=== PATIENT | female | born 1990 | race American Indian/Alaskan Native ===

== ENCOUNTER 2017-02-17 07:55 | Inpatient (IN) | payer OTHER ==
[2017-02-17] MEDS ORDERED: DEXTROSE 5%-LACTATED RINGERS 1,000 ML IV ONE (08:20)
[2017-02-17 14:16] VITALS: BMI 24.3
[2017-02-17 14:17] LABS: MCHC 34.4 g/dl (32.0-36.0); MEAN CELL VOLUME 90.2 fl (80-96); MEAN PLT VOLUME 10.1 fl (7.5-11.1); NEUTROPHILS 84.1 % (42.8-82.8); PLATELET COUNT 148 K/MM3 (134-434); RDW 14.3 % (11.6-15.6); WHITE BLOOD COUNT 8.5 K/mm3 (4.0-10.0)
[2017-02-17 14:42] LABS: INR 0.95 (0.82-1.09); PROTHROMBIN TIME (PATIENT) 10.7 SEC (9.98-11.88)
[2017-02-17 14:44] LABS: ACTIVATED PTT 29.9 SECONDS (26.9-34.4)
[2017-02-17 14:52] LABS: ANION GAP 14 (8-16); CALCIUM 8.3 mg/dL (8.5-10.1); CO2 21 mmol/L (21-32); CREATININE 0.5 mg/dL (0.55-1.02); GLUCOSE,RANDOM 72 mg/dL (74-106)
[2017-02-17 15:00] LABS: HIV 1 & 2 AB NEGATIVE; HIV 1 AGp24 NEGATIVE
[2017-02-17] MEDS ORDERED: PROMETHAZINE HCL 25 MG/1 ML VIAL IVPUSH ONE (16:15)
[2017-02-17] MEDS ORDERED: BUTORPHANOL TARTRATE 1 MG/ML VIAL IVPUSH ONE (16:15)
--- NOTE | 2017-02-17 19:40 | HP ---
Past Medical History - Primary Care Physician PCP:: Jorge Nathan - Admission Chief Complaint: 38 weeks, rom, labor History of Present Illness: 26 yo f EDC 02/28 c/o leaking af since this am, clear fluid , no fever, has pain since 7 am , cx 2 cm 70 vx -2 mr ,nitrazine positive, clear fluid, fhr cat 1, contraction, moderate intensity History Source: Caregiver Limitations to Obtaining History: No Limitations - Past Medical History ...: 1 ...Para: 0 ...Term: 0 ...: 0 ...Spon : 0 ...Induced : 0 ...Multiple Gestation: 0 ...LMP: 05/24/16 ... Weeks Gestation by Dates: 38.3 ...EDC by Dates: 02/28/17 ...EDC by Sono: 03/03/17 - Past Surgical History Hx Myomectomy: No Hx Transabdominal Cerclage: No - Smoking History Smoking history: Never smoked Have you smoked in the past 12 months: No - Alcohol/Substance Use Hx Alcohol Use: No History of Substance Use: reports: None - Social History Usual Living Arrangement: Yes: With Spouse History of Recent Travel: No Home Medications - Allergies Allergies/Adverse Reactions: Allergies Allergy/AdvReac Type Severity Reaction Status Date / Time No Known Allergies Allergy Verified 06/30/15 11:08 - Home Medications Home Medications: Ambulatory Orders Vitamins (Sjr) - 1 tab PO DAILY 02/15/17 Review of Systems - Review of Systems Constitutional: reports: No Symptoms Eyes: reports: No Symptoms HENT: reports: No Symptoms Neck: reports: No Symptoms Cardiovascular: reports: No Symptoms Respiratory: reports: No Symptoms Gastrointestinal: reports: Abdominal Pain Genitourinary: reports: No Symptoms Breasts: reports: No Symptoms Reported Musculoskeletal: reports: No Symptoms Integumentary: reports: No Symptoms Neurological: reports: No Symptoms Endocrine: reports: No Symptoms Hematology/Lymphatic: reports: No Symptoms Psychiatric: reports: No Symptoms Physical Exam - Maternity Vital Signs: Vital Signs Temperature 98.7 F 02/17/17 17:56 Pulse Rate 86 02/17/17 19:00 Respiratory Rate 20 02/17/17 19:00 Blood Pressure 137/88 02/17/17 19:00 O2 Sat by Pulse Oximetry (%) Constitutional: Yes: Well Nourished, No Distress, Calm Eyes: Yes: WNL, Conjunctiva Clear, EOM Intact HENT: Yes: WNL, Atraumatic, Normocephalic Neck: Yes: WNL, Supple, Trachea Midline Cardiovascular: Yes: WNL, Regular Rate and Rhythm Breast(s): Yes: WNL - Abdominal Exam/OB Fundal Height: 40 Number of Fetuses: Single Presentation: Vertex Contractions: Yes Regularity: Irregular Intensity: Mod/Strong Monitor Mode: External Heart Rate Location: [facility] Category: I Accelerations: Uniform Decelerations: None - Physical Exam Musculoskeletal: Yes: WNL Extremities: Yes: WNL Edema: Yes Edema: LLE: Trace, RLE: Trace Deep Tendon Reflex Grade: Normal +2 ...Motor Strength: WNL Psychiatric: Yes: WNL - Labs Lab Results: CBC, BMP 02/17/17 13:00 02/17/17 13:00 Hemorrhage Risk Assessment - Risk Factors Medium Risk Factors: Yes: None High Risk Factors: Yes: None Risk Score: 1 Risk Level: Medium Risk Problem List - Problems (1) with 38 completed weeks gestation Code(s): Z3A.38 - 38 WEEKS GESTATION OF (2) membrane rupture Code(s): EEG4457 - (3) Labor established Code(s): IQQ2570 - Assessment/Plan admit, fhm, pain management
[2017-02-17] MEDS ORDERED: ELECTROLYTE-148 SOLN 1,000 ML IV SCH (19:45)
[2017-02-17] MEDS ORDERED: FENTANYL/BUPIVACAINE/NS/PF - PCEA - 50 ML DISP.SYRIN EP SCH (20:15)
[2017-02-18] MEDS ORDERED: AMPICILLIN - 2 GM in SODIUM CHLORIDE 100 ML IVPB ONE (01:00)
--- NOTE | 2017-02-18 01:38 | PN ---
Progress Note (short form) - Note Progress Note: cx full, 100 vx 2 pluse , multiple variable decel noted with pushing . advised c /s, rba discussed Problem List - Problems (1) with 38 completed weeks gestation Code(s): Z3A.38 - 38 WEEKS GESTATION OF (2) membrane rupture Code(s): QZU5751 - (3) Labor established Code(s): ABY4225 -
[2017-02-18] MEDS ORDERED: BUPIVACAINE HCL/PF 0.5% (5MG/ML) 10 ML VIAL ONE (01:39)
[2017-02-18 02:40] LABS: ARTERIAL BLOOD GAS BASE EXCESS -11.3 meq/l (-2-2); ARTERIAL BLOOD GAS HCO3 20.1 meq/L (22-26)
[2017-02-18] MEDS ORDERED: IBUPROFEN 800 MG/8 ML IJ IVPB PRN (02:53)
[2017-02-18] MEDS ORDERED: WITCH HAZEL 50% (TUCKS) 40 PAD/JAR PAD TP PRN (02:53)
[2017-02-18] MEDS ORDERED: BENZOCAINE 20% 57 GM BOTTLE TP PRN (02:53)
[2017-02-18] MEDS ORDERED: BENZOCAINE 28 GM HEMORRHOIDAL OINTMENT PR PRN (02:53)
[2017-02-18] MEDS ORDERED: METHYLERGONOVINE MALEATE 0.2 MG/1 ML AMP IM PRN (02:53)
[2017-02-18] MEDS ORDERED: diphenhydrAMINE HCL 25 MG CAPSULE (FP) PO PRN (02:53)
[2017-02-18] MEDS ORDERED: oxyCODONE HCL 5 MG TABLET PO PRN (02:53)
[2017-02-18 02:56] LABS: ARTERIAL BLD GAS O2 SATURATION 17.4 % (90-98.9); ARTERIAL BLOOD GAS PO2 13.2 mmHg (80-100)
[2017-02-18 03:00] LABS: VENOUS BLOOD GAS HCO3 19.2 meq/L (19-25); VENOUS PH 7.13 (7.32-7.42)
[2017-02-18] MEDS ORDERED: DEXTROSE 5%-LACTATED RINGERS 1,000 ML IV SCH (03:00)
[2017-02-18] MEDS ORDERED: OXYTOCIN 20 UNITS in 0.9% NS 20 UNIT/1,000 ML INFUS.BAG IV SCH (03:00)
[2017-02-18] MEDS ORDERED: morphine SULFATE/Preservative Free 0.5 MG/ML (1cc Syringe) SPIN ONE (03:13)
[2017-02-18] MEDS ORDERED: ONDANSETRON 4 MG/2 ML VIAL IVPUSH PRN (03:13)
[2017-02-18] MEDS ORDERED: ACETAMINOPHEN 1000 MG/100 ML VIAL (NON FORMULARY) IVPB ONE (03:14)
[2017-02-18] MEDS: CEFAZOLIN 1 GM/D5W 1 GM/50 ML BAG IVPB SCH ×2 (09:21→17:58)
--- NOTE | 2017-02-18 09:33 | OP ---
DATE OF OPERATION: 02/18/2017 PREOPERATIVE DIAGNOSIS: at 38 weeks, labor, failure of descent in second stage of labor, and nonreassuring heart rate. POSTOPERATIVE DIAGNOSIS: at 38 weeks, labor, failure of descent in second stage of labor, and nonreassuring heart rate. PROCEDURE: Primary low segment transverse section. SURGEON: Justo Nathan MD [facility] CENTER PROJECT MANAGER: DEXTER Huang ANESTHESIA: Spinal anesthesia by Ti Manuel MD. ESTIMATED BLOOD LOSS: 700 mL. DESCRIPTION OF PROCEDURE: The patient was taken to the operating room, had adequate spinal anesthesia. Abdomen and perineum were prepped and draped. Pfannenstiel abdominal skin incision was made. Abdomen wall was cut layer by layer. Anterior peritoneum was exposed and incised. Upon entering the abdominal cavity, lower uterine segment was identified and ureterovesical fold of peritoneum was established. Bladder was pushed down. Then with the lower blade of the [place] retractor in the pelvis, a low transverse uterine incision was made, incision extended laterally. Amniotic sac was entered, clear fluid. Head delivered from occiput posterior position. Nasopharynx was suctioned and live baby was delivered, attended by pump attendant. 8 and 9. Placenta was delivered manually. Uterine cavity was cleaned of all remaining tissue. Uterine incision was closed in 2 layers, first layer with 0 Biosyn continuous suture, the second layer with 0 Biosyn imbricating the first layer. Bladder flap was closed with 0 Biosyn continuous suture. Both tubes and ovaries were checked and normal. No active bleeding was seen. All the lap pad, sponge, needle, and instrument counts were correct. Then the peritoneum was closed with 0 Biosyn continuous suture. Muscles were brought together with interrupted sutures of 0 Biosyn. Fascia was closed with 0 Biosyn continuous suture, subcutaneous fat with interrupted suture of 0 Biosyn, and skin was closed with raulito. The patient tolerated the procedure well, left the OR in good condition JUSTO NATHAN M.D. [id number]
[2017-02-18] MEDS: SIMETHICONE 80 MG TAB.CHEW (FP) PO PRN (20:52)
[2017-02-18] MEDS: ACETAMINOPHEN 325 MG TABLET (FP) PO PRN (20:52)
[2017-02-18] MEDS: IBUPROFEN 600 MG TABLET (FP) PO PRN (20:58)
[2017-02-19] MEDS ORDERED: BISACODYL 10 MG SUPP.RECT PR PRN (02:53)
[2017-02-19] MEDS ORDERED: TUBERCULIN PPD 5 TU/0.1ML SYRINGE (IN PATIENT USE ONLY) ID ONE (07:00)
[2017-02-19 07:46] LABS: BASOPHIL 0.4 % (0-2.0); EOSINOPHIL 0.6 % (0-4.5); MCHC 34.3 g/dl (32.0-36.0); MEAN CELL VOLUME 90.5 fl (80-96); MEAN PLT VOLUME 9.5 fl (7.5-11.1); NEUTROPHILS 84.9 % (42.8-82.8); PLATELET COUNT 147 K/MM3 (134-434); RDW 14.7 % (11.6-15.6); WHITE BLOOD COUNT 12.6 K/mm3 (4.0-10.0)
[2017-02-19] MEDS: ACETAMINOPHEN 325 MG TABLET (FP) PO PRN ×2 (09:33→20:03)
[2017-02-19] MEDS: IBUPROFEN 600 MG TABLET (FP) PO PRN ×2 (09:34→20:02)
[2017-02-19] MEDS: SIMETHICONE 80 MG TAB.CHEW (FP) PO PRN ×2 (09:35→20:02)
--- NOTE | 2017-02-19 11:11 | PN ---
Post Progress Note - Subjective Subjective: No complaints Post Day: 1 Type of Delivery: Primary C/S Vital Signs: Vital Signs Temperature 98.5 F 02/19/17 08:54 Pulse Rate 97 H 02/19/17 08:54 Respiratory Rate 20 02/19/17 08:54 Blood Pressure 116/60 02/19/17 08:54 O2 Sat by Pulse Oximetry (%) 98 02/18/17 06:00 Breast Exam: Yes: Soft Uterus: Yes: Fundus Firm, Fundus below umbilicus, Non-tender Incision: Yes: Dressing dry and intact Abdomen/GI: Yes: Abdomen soft Lochia: Yes: Rubra Lochia, amount: Small Extremities: Yes: Calves non-tender Perineum: Yes: Intact Activity: Ambulating - Labs Labs: CBC WBC 12.6 K/mm3 (4.0-10.0) H D 02/19/17 07:06 RBC 2.99 M/mm3 (3.60-5.2) L D 02/19/17 07:06 Hgb 9.3 GM/dL (10.7-15.3) L D 02/19/17 07:06 Hct 27.1 % (32.4-45.2) L D 02/19/17 07:06 MCV 90.5 fl (80-96) 02/19/17 07:06 MCH 31.0 pg (25.7-33.7) 02/19/17 07:06 MCHC 34.3 g/dl (32.0-36.0) 02/19/17 07:06 RDW 14.7 % (11.6-15.6) 02/19/17 07:06 Plt Count 147 K/MM3 (134-434) 02/19/17 07:06 MPV 9.5 fl (7.5-11.1) 02/19/17 07:06 Neutrophils % 84.9 % (42.8-82.8) H 02/19/17 07:06 Lymphocytes % 9.5 % (8-40) 02/19/17 07:06 Monocytes % 4.6 % (3.8-10.2) 02/19/17 07:06 Eosinophils % 0.6 % (0-4.5) D 02/19/17 07:06 Basophils % 0.4 % (0-2.0) 02/19/17 07:06 Assessment/Plan 30yo POD#1 s/p primary LT C/S, doing well stable, afebrile. care instructions reviewed. Asymtomatic for anemia Continue routine postop care. Ambulation encouraged
--- NOTE | 2017-02-19 18:41 | PN ---
Progress Note (short form) - Note Progress Note: Anesthesia post op note, POD#1. S/P in Epidural. VSS. Ambulating. No apparent post anesthesia complications. Signed off.
[2017-02-20] MEDS: SIMETHICONE 80 MG TAB.CHEW (FP) PO PRN ×3 (08:11→21:28)
[2017-02-20] MEDS: ACETAMINOPHEN 325 MG TABLET (FP) PO PRN ×3 (08:11→21:27)
[2017-02-20] MEDS: oxyCODONE HCL 5 MG TABLET PO PRN ×2 (08:12→15:47)
[2017-02-20] MEDS ORDERED: FLU VACC QS2017-18 36MOS UP/PF 60 MCG/0.5 ML SYRINGE IM ONE (10:00)
[2017-02-20] MEDS ORDERED: DIPHTH,PERTUSS(ACELL),TET 0.5 ML DISP.SYRIN IM ONE (10:00)
[2017-02-20] MEDS ORDERED: SENNOSIDES/DOCUSATE COMBO (SENNA PLUS) TABLET (UD) PO PRN (22:00)
[2017-02-21 07:56] LABS: BASOPHIL 0.4 % (0-2.0); MCH 30.8 pg (25.7-33.7); MCHC 34.1 g/dl (32.0-36.0); MEAN CELL VOLUME 90.1 fl (80-96); MEAN PLT VOLUME 8.6 fl (7.5-11.1); NEUTROPHILS 82.6 % (42.8-82.8); PLATELET COUNT 191 K/MM3 (134-434); RDW 14.8 % (11.6-15.6)
[2017-02-21] MEDS: IBUPROFEN 600 MG TABLET (FP) PO PRN ×2 (08:07→20:26)
[2017-02-21] MEDS: SIMETHICONE 80 MG TAB.CHEW (FP) PO PRN ×2 (08:08→20:23)
[2017-02-21] MEDS: ACETAMINOPHEN 325 MG TABLET (FP) PO PRN ×2 (08:08→20:23)
--- NOTE | 2017-02-21 09:51 | DS ---
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 Vital Signs: Vital Signs Temperature 98.1 F 02/20/17 22:00 Pulse Rate 104 H 02/20/17 22:00 Respiratory Rate 20 02/20/17 22:00 Blood Pressure 136/84 02/20/17 22:00 O2 Sat by Pulse Oximetry (%) 98 02/18/17 06:00 Constitutional: Yes: Well Nourished, No Distress, Calm Eyes: Yes: WNL, Conjunctiva Clear, EOM Intact HENT: Yes: WNL, Atraumatic, Normocephalic Neck: Yes: WNL, Supple, Trachea Midline Cardiovascular: Yes: WNL, Regular Rate and Rhythm Respiratory: Yes: WNL, Regular, CTA Bilaterally Gastrointestinal: Yes: WNL, Normal Bowel Sounds, Soft ...Rectal Exam: Yes: Deferred Renal/: Yes: WNL External Genitalia: Yes: Normal Internal Exam Deferred: Yes ....Post : Yes: Uterus firm, Uterus non-tender, Slight lochia rubra Breast(s): Yes: WNL Musculoskeletal: Yes: WNL Extremities: Yes: WNL Edema: LLE: 1+, RLE: 1+ Integumentary: Yes: WNL Wound/Incision: Yes: Clean/Dry, Well Approximated, Darleen Intact Neurological: Yes: WNL, Alert, Oriented ...Motor Strength: WNL Psychiatric: Yes: WNL, Alert, Oriented Labs: CBC, BMP 02/21/17 07:00 02/17/17 13:00 Delivery - Delivery Section: Primary, Low Flap Transverse Type of Anesthesia: Spinal Episiotomy/Laceration: None EBL (cc): 700 Delivery, Single - Stages of Labor Date 1st Stage Initiatied: 02/17/17 Time 1st Stage Initiated: 08:00 Date 2nd Stage Initiated: 02/17/17 Time 2nd Stage Initiated: 23:50 Date of Delivery: 02/18/17 Time of Delivery: 02:13 Time Placenta Delivered: 02:14 Placenta: Yes: Manual Removal - Condition of Infant Staff Pharmacist/Perfect Binder Operator Present: Yes Name: Dannie Hammonds Gender: Female Weight: 2.665 kg Position: OP Total Hours ROM (Hrs/Mins): 14h43m - 1 Minute Total Score: 8 5 Minutes Total Score: 9 - Feeding Plan Initial Plan: Elected not to breastfeed exclusively throughout hospitalization Discharge Summary Current Active Problems membrane rupture (Acute) Labor established (Acute) with 38 completed weeks gestation (Acute) Procedures: Principal: Primary LT C/S Hospital Course: Normal recovery Condition: Good - Instructions Diet, Activity, Other Instructions: Physical activity Resume your normal everyday activity as tolerated no heavy lifting or exercise until seen by your surgeon. You may walk unlimited marcie of and climb stairs. You may resume driving the car when you feel safe and comfortable behind the wheel. No sexual activity as instructed. Wound care If you have a bandage, leave it on, and keep dry for 48-72 hours. After that time discard the outer bandage. If they are tapes on the skin under the out of bandage leave them in place. They will peel off in the next 7 to 10 days. Do Not Peel them off. You may shower the day after surgery. If there are tapes present on the skin, you may shower over them. Diet There are no dietary restrictions. Eat healthy, high-fiber foods. Drink 6 to 8 glasses of liquid each day. This will assist in keeping your bowels are regular. Pain management You may take Tylenol or acetaminophen or Ibuprofen (for example, Motrin, Advil etc.) from my pain prescription medication is ordered should be taken as prescribed for moderate to severe pain. Call MD for any of the following: Severe pain not relieved by medication Fever of 101 or higher Excessive bleeding or drainage on dressing Inability to urinate Referrals: Jorge Nathan MD [Staff Physician] - Disposition: HOME - Home Medications Comprehensive Discharge Medication List: Ambulatory Orders Vitamins (Sjr) - 1 tab PO DAILY 02/15/17
[2017-02-22 08:30] VITALS: BP 125/85; PULSE 76; TEMP 97.8
[2017-02-22] MEDS: IBUPROFEN 600 MG TABLET (FP) PO PRN (10:23)
[2017-02-22] MEDS: ACETAMINOPHEN 325 MG TABLET (FP) PO PRN (10:24)
--- NOTE | 2017-02-23 17:12 | PATH ---
Surgical Pathology Report Patient Name: MILLIE EASLEY Med. Rec. #: [id number] /Age/Gender: 1990 (Age: 26) / F Account: [id number] Location: [facility] OBS/PERSONAL CHEF Taken: 02/18/2017 Received: 02/18/2017 Reported: 02/23/2017 Physicians: Jorge Nathan M.D. Specimen(s) Received PLACENTA Clinical History , 38 weeks and 4 days, primary for nonreassuring heart rate and failure to descend Final Diagnosis PLACENTA, SECTION: 344 g THIRD TRIMESTER PLACENTA WITH FOCAL INTRAPARENCHYMAL INFARCT MEASURING 1.5 CM (<10 % OF PLACENTAL SURFACE), TRIVASCULAR UMBILICAL CORD AND UNREMARKABLE PLACENTAL MEMBRANES. Electronically Signed Ling Huntley M.D. Gross Description The specimen is received fresh labeled placenta and is a 344 gram, 15.0 x 14.0 x 2.8 cm. placenta with attached membranes and umbilical cord. The attached membranes are faulkner, thick, cloudy and insert marginally. The umbilical cord measures 8.5 cm. in length and averages 1.1 cm. in diameter. The cord inserts eccentrically, 1.5 cm. to the nearest margin. No true knots or strictures are identified. Cut surface of the umbilical cord reveals 3 vessels. The surface is cabrera-blue with minimal fibrin deposition and appropriate caliber vessels. The maternal surface is red-brown with focal defects. Sectioning reveals a 1.5 cm in greatest dimension faulkner intraparenchymal lesion. The remaining placental parenchyma is red-brown and spongy. Clam Digger sections are submitted in 4 cassettes as follows: 1-membrane roll and umbilical cord; 2-lesion; 6-4-tgjw-thickness sections of placenta. 02/22/2017 saudi02/22/2017
== END 2017-02-22 12:31 | disposition home or self-care (01) | DRG 540 ==
LOC: JDEL 07:55 → JLDR 13:40 → J3W 02-18 05:31
PROVIDERS: ADMIT Obstetrics & Gynecology; ATTEND Obstetrics & Gynecology
PROC: 10D00Z1 Extraction of Products of Conception, Low, Open Approach (ICD-10-PCS; principal; 2017-02-18)
DX: O76 Abnormality in fetal heart rate and rhythm complicating labor and delivery (principal); O62.1 Secondary uterine inertia; Z3A.38 38 weeks gestation of pregnancy; Z37.0 Single live birth
CPT/HCPCS: 36415; 36600; 59025; 71020-TC; 80048; 82803; 85025; 85610; 85730; 86593; 86850; 86900; 86901; 87389; 88307-TC; 90686; 90715; G0008

== ENCOUNTER 2017-05-11 00:54 | Emergency (ER) | payer OTHER ==
[2017-05-11 01:11] VITALS: BP 119/71; PULSE 76; TEMP 98.2; BMI 16.9
--- NOTE | 2017-05-11 01:18 | PDOC ---
History of Present Illness - General History Source: Patient, Family Exam Limitations: No Limitations - History of Present Illness Initial Comments: 05/11/17 01:20 The patient is a 27 year old female presenting with her , with no significant past medical history, who presents to the emergency department with a toothache on her right side. She reports that she went to urgent care earlier today who prescribed her ibuprofen and sent her to an oral surgeon. She reports that she has an appointment in the morning with an oral surgeon in order to take out the tooth. She describes her pain as moderate in severity. She notes that she has had dental blocks in the past. The patient denies chest pain, shortness of breath, headache and dizziness. Denies fever, chills, nausea, vomit, diarrhea and constipation. Allergies: None Past surgical history: None reported Social history: No alcohol, tobacco or drug use reported <Santy Ruiz - Last Filed: 05/11/17 01:18> <Idalia Camp - Last Filed: 05/11/17 02:10> - General Chief Complaint: Toothache Stated Complaint: TOOTHACHE Time Seen by Provider: 05/11/17 01:05 Past History <Santy Ruiz - Last Filed: 05/11/17 01:18> - Past Medical History Asthma: No Cancer: No Cardiac Disorders: No COPD: No Diabetes: No HTN: No Seizures: No Thyroid Disease: No - Suicide/Smoking/Psychosocial Hx Smoking History: Never smoked Have you smoked in the past 12 months: No Hx Alcohol Use: No Drug/Substance Use Hx: No Substance Use Type: None Hx Substance Use Treatment: No <Idalia Camp - Last Filed: 05/11/17 02:10> - Past Medical History Allergies/Adverse Reactions: Allergies Allergy/AdvReac Type Severity Reaction Status Date / Time No Known Allergies Allergy Verified 05/11/17 01:11 Home Medications: Ambulatory Orders Vitamins (Sjr) - 1 tab PO DAILY 02/15/17 Ibuprofen [Motrin -] 600 mg PO TID PRN 05/11/17 Review of Systems - Review of Systems Able to Perform ROS?: Yes Comments:: 05/11/17 01:20 GENERAL/CONSTITUTIONAL: No fever or chills. No weakness. HEAD, EYES, EARS, NOSE AND THROAT: (+) Right sided toothache. No change in vision. No ear pain or discharge. No sore throat.- CARDIOVASCULAR: No chest pain or shortness of breath RESPIRATORY: No cough, wheezing, or hemoptysis. GASTROINTESTINAL: No nausea, vomiting, diarrhea or constipation. GENITOURINARY: No dysuria, frequency, or change in urination. MUSCULOSKELETAL: No joint or muscle swelling or pain. No neck or back pain. SKIN: No rash NEUROLOGIC: No headache, vertigo, loss of consciousness, or change in strength/ sensation. ENDOCRINE: No increased thirst. No abnormal weight change HEMATOLOGIC/LYMPHATIC: No anemia, easy bleeding, or history of blood clots. ALLERGIC/IMMUNOLOGIC: No hives or skin allergy. <Santy Ruiz - Last Filed: 05/11/17 01:18> *Physical Exam - Vital Signs Last Vital Signs Temp Pulse Resp BP Pulse Ox 98.2 F 76 16 119/71 98 05/11/17 01:09 05/11/17 01:09 05/11/17 01:09 05/11/17 01:09 05/11/17 01:09 - Physical Exam Comments: 05/11/17 01:18 GENERAL: Awake, alert, and fully oriented, in no acute distress HEAD: (+) Mild right sided facial swelling. No signs of trauma, normocephalic, atraumatic EYES: PERRLA, EOMI, sclera anicteric, conjunctiva clear ENT: uricles normal inspection, hearing grossly normal, nares patent, oropharynx clear without exudates. Moist mucosa ORAL EXAM: (+) No trismus, can fully open mouth, missing numerous teeth, molar # 31 is grossly carious, the distal aspect of the tooth is missing. No sublingual swelling. No submendibular swelling. Kindeling her own saliva, speaking in clear sentences. NECK: Normal ROM, supple, no lymphadenopathy, JVD, or masses HEART: Regular rate and rhythm, normal S1 and S2, no murmurs, rubs or gallops, peripheral pulses normal and equal bilaterally. NEUROLOGICAL: Cranial nerves II through XII grossly intact. Normal speech, normal gait, no focal sensorimotor deficits SKIN: Warm, Dry, normal turgor, no rashes or lesions noted <Santy Ruiz - Last Filed: 05/11/17 01:18> - Vital Signs Last Vital Signs Temp Pulse Resp BP Pulse Ox 98.2 F 76 16 119/71 98 05/11/17 01:09 05/11/17 01:09 05/11/17 01:09 05/11/17 01:09 05/11/17 01:09 <Idalia Camp - Last Filed: 05/11/17 02:10> Procedures - Additional Procedures Additional Procedures: other (right inferior alveolar dental block Used 1.6cc of bupivicaine) <Idalia Camp - Last Filed: 05/11/17 02:10> *DC/Admit/Observation/Transfer - Attestations Scribe Attestion: 05/11/17 01:18 Documentation prepared by Santy Ruiz, acting as biomedical engineering internship for Idalia Camp MD <Santy Ruiz - Last Filed: 05/11/17 01:18> <Idalia Camp - Last Filed: 05/11/17 02:10> Diagnosis at time of Disposition: Tooth ache - Discharge Dispostion Disposition: HOME Condition at time of disposition: Stable - Referrals Referrals: lCem Daniel MD [Primary Care Provider] - - Patient Instructions Printed Discharge Instructions: DI for Tooth Decay, DI for Dental Pain Additional Instructions: keep your appointment with the oral surgeon - Post Discharge Activity
== END 2017-05-11 02:14 | disposition home or self-care (01) ==
LOC: JER 00:54
PROC: 3E013BZ Introduction of Anesthetic Agent into Subcutaneous Tissue, Percutaneous Approach (ICD-10-PCS; principal; 2017-05-11)
DX: K08.89 Other specified disorders of teeth and supporting structures (principal)
CPT/HCPCS: 96372; 99282-25

== ENCOUNTER 2019-03-23 11:24 | Emergency (ER) | payer OTHER ==
[2019-03-23 11:46] VITALS: BMI 22.3
[2019-03-23] MEDS ORDERED: ONDANSETRON *ODT* 4 MG TABLET SL ONE (12:15)
[2019-03-23] MEDS ORDERED: FAMOTIDINE 20 MG TABLET PO ONE (12:15)
[2019-03-23] MEDS ORDERED: ONDANSETRON *ODT* 4 MG TABLET ONE (12:32)
--- NOTE | 2019-03-23 12:32 | PDOC ---
History of Present Illness - General History Source: Patient Exam Limitations: Clinical Condition - History of Present Illness Initial Comments: 03/23/19 12:27 Patient with past medical history of gastritis sent in by PCP to rule out influenza status post patient presented PCP office today with fever, body aches , nausea and vomiting for 2 days. Patient reports she was seen by PCP 5 days ago and was prescribed prophylactically Tamiflu due to sibling testing positive for flu. Patient reports started vomiting 2 days after taking Tamiflu and has been vomiting since then unable to keep any food down. LMP March 21. PCP did not treat patient today for symptoms and advised patient to come to ED for flu test as office did not have flu test. Patient report taking Tylenol 3 hours ago for fever of 101 Is this a multiple visit Asthma Patient?: No Timing/Duration: other (2 days) <Martín Villafuerte - Last Filed: 03/23/19 13:07> <Kit Hanna - Last Filed: 03/23/19 17:35> - General Chief Complaint: Cold Symptoms Stated Complaint: FEVER/NAUSEA Time Seen by Provider: 03/23/19 11:58 Past History - Past Medical History Asthma: No Cancer: No Cardiac Disorders: No COPD: No Diabetes: No HTN: No Seizures: No Thyroid Disease: No - Immunization History Immunization Up to Date: Yes - Psycho Social/Smoking Cessation Hx Smoking History: Never smoked Have you smoked in the past 12 months: No Information on smoking cessation initiated: No Hx Alcohol Use: No Drug/Substance Use Hx: No Substance Use Type: None Hx Substance Use Treatment: No <Martín Villafuerte - Last Filed: 03/23/19 13:07> <Kit Hanna - Last Filed: 03/23/19 17:35> - Past Medical History Allergies/Adverse Reactions: Allergies Allergy/AdvReac Type Severity Reaction Status Date / Time No Known Allergies Allergy Verified 05/11/17 01:11 Home Medications: Ambulatory Orders Vitamins (Sjr) - 1 tab PO DAILY 02/15/17 Ibuprofen [Motrin -] 600 mg PO TID PRN 05/11/17 Baloxavir Marboxil [Xofluza] 40 mg PO ONCE #1 tablet 03/23/19 Famotidine [Pepcid -] 40 mg PO DAILY #7 tablet 03/23/19 Ondansetron [Zofran *Odt*] 4 mg SL Q8H PRN #21 od.tablet 03/23/19 Review of Systems - Review of Systems Able to Perform ROS?: Yes Is the patient limited Georgian proficient: No Constitutional: Yes: Chills, Fever, Malaise HEENTM: Yes: Symptoms Reported, See HPI, Nose Congestion. No: Eye Pain, Blurred Vision, Tearing, Recent change in vision, Double Vision, Cataracts, Ear Pain, Ocular Prothesis, Ear Discharge, Nose Pain, Tinnitus, Nose Bleeding, Hearing Loss, Throat Pain, Throat Swelling, Mouth Pain, Dental Problems, Difficulty Swallowing, Mouth Swelling, Other Respiratory: No: Symptoms reported, See HPI, Cough, Orthopnea, Shortness of Breath, SOB with Exertion, SOB at Rest, Stridor, Wheezing, Productive cough, Hemoptysis, Other Cardiac (ROS): No: Symptoms Reported, See HPI, Chest Pain, Edema, Irregular Heart Rate, Lightheadedness, Palpitations, Syncope, Chest Tightness, Other ABD/GI: Yes: Symptoms Reported, See HPI, Nausea, Vomiting, Abdominal cramping ( epigastric pain). No: Abd. Pain w/ defecation, Blood Streaked Bowels, Constipated, Diarrhea, Difficulty Swallowing, Poor Appetite, Poor Fluid Intake, Rectal Bleeding, Indigestion : No: Symptoms Reported Musculoskeletal: No: Symptoms Reported Integumentary: No: Symptoms Reported Neurological: No: Symptoms reported All Other Systems: Reviewed and Negative <Martín Villafuerte - Last Filed: 03/23/19 13:07> *Physical Exam - Vital Signs Last Vital Signs Temp Pulse Resp BP Pulse Ox 99.4 F 117 H 18 101/59 L 99 03/23/19 11:43 03/23/19 11:43 03/23/19 11:43 03/23/19 11:43 03/23/19 11:43 - Physical Exam General Appearance: Yes: Nourished, Appropriately Dressed. No: Apparent Distress HEENT: positive: DERICK, Normal ENT Inspection, Pharynx Normal Neck: positive: Supple Respiratory/Chest: positive: Lungs Clear, Normal Breath Sounds. negative: Respiratory Distress, Accessory Muscle Use Cardiovascular: positive: Regular Rhythm, Regular Rate Gastrointestinal/Abdominal: positive: Normal Bowel Sounds, Tender (mild epigastric tenderness), Flat, Soft. negative: Organomegaly, Distended, Guarding , Rebound, Mass Musculoskeletal: positive: Normal Inspection Extremity: positive: Normal Capillary Refill, Normal Inspection Integumentary: positive: Normal Color Neurologic: positive: Fully Oriented, Alert, Normal Mood/Affect, Normal Response <Martín Villafuerte - Last Filed: 03/23/19 13:07> - Vital Signs Last Vital Signs Temp Pulse Resp BP Pulse Ox 99.0 F 114 H 18 91/60 99 03/23/19 13:15 03/23/19 13:15 03/23/19 13:15 03/23/19 13:15 03/23/19 11:43 <Kit Hanna - Last Filed: 03/23/19 17:35> ED Treatment Course - Medications Given in the ED: ED Medications Discontinued Medications Generic Name Dose Route Start Last Admin Trade Name Milton PRN Reason Stop Dose Admin Famotidine 40 mg 03/23/19 12:15 03/23/19 12:50 Pepcid - PO 03/23/19 12:16 40 mg ONCE ONE Administration Ondansetron HCl 4 mg 03/23/19 12:15 03/23/19 12:33 Zofran Odt - SL 03/23/19 12:16 4 mg ONCE ONE Administration <Kit Hanna - Last Filed: 03/23/19 17:35> Medical Decision Making - Medical Decision Making 03/23/19 12:29 Patient with past medical history of gastritis not on meds sent in by PCP to rule out influenza status post patient presented PCP office today with fever, body aches, nausea and vomiting for 2 days. Patient reports she was seen by PCP 5 days ago and was prescribed prophylactically Tamiflu due to sibling testing positive for flu. Patient reports started vomiting 2 days after taking Tamiflu and has been vomiting since then unable to keep any food down. LMP March 21. PCP did not treat patient today for symptoms and advised patient to come to ED for flu test as office did not have flu test. Patient report taking Tylenol 3 hours ago for fever of 101 Clinical exam significant for mild epigastric tenderness without guarding or rebound otherwise normal exam. Patient afebrile now. Symptoms likely influenza versus viral syndrome. Rapid flu test ordered. Zofran 4 mg sublingual ordered for nausea and vomiting and Pepcid 40 mg p.o. ordered for epigastric pain from worsening gastritis due to vomiting 03/23/19 13:07 rapid flu pos for influenza A. Patient request tx. Patient stable for outpatient tx with Xofluza 40mg one time and zofran with pepcid for N/V and abd pains with advice to increase fluid intake and Tylenol with PCP f/u <Martín Villafuerte - Last Filed: 03/23/19 13:07> - Medical Decision Making 03/23/19 17:35 I reviewed the case of the mid-level practitioner and was available for consultation while in the emergency department <Kit Hanna - Last Filed: 03/23/19 17:35> Discharge - Discharge Information Problems reviewed: Yes - Admission No <Martín Villafuerte - Last Filed: 03/23/19 13:07> <Kit Hanna - Last Filed: 03/23/19 17:35> - Discharge Information Clinical Impression/Diagnosis: Influenza A Condition: Stable Disposition: HOME - Additional Discharge Information Prescriptions: Baloxavir Marboxil [Xofluza] 40 mg PO ONCE #1 tablet Famotidine [Pepcid -] 40 mg PO DAILY #7 tablet Ondansetron [Zofran *Odt*] 4 mg SL Q8H PRN #21 od.tablet PRN Reason: nausea - Follow up/Referral Referrals: Clem Daniel MD [Primary Care Provider] - - Patient Discharge Instructions Patient Printed Discharge Instructions: DI for Influenza -- Adult Additional Instructions: Your flu test is positive for Flu A. Take prescribed medications as prescribed for nausea and vomiting. continue with Tylenol as needed for fever. Rest and Increase fluid intake. Follow-up with PCP
[2019-03-23] MEDS ORDERED: FAMOTIDINE 20 MG TABLET ONE (12:53)
[2019-03-23 13:53] VITALS: BP 91/60; PULSE 114; TEMP 99
== END 2019-03-23 13:15 | disposition home or self-care (01) ==
LOC: JER 11:24
DX: J09.X2 Influenza due to identified novel influenza A virus with other respiratory manifestations (principal); K52.9 Noninfective gastroenteritis and colitis, unspecified
CPT/HCPCS: 87804; 99282-25; Q0162

== ENCOUNTER 2020-12-23 13:41 | Emergency (ER) | payer OTHER ==
[2020-12-23 14:07] VITALS: BP 101/65; PULSE 68; TEMP 97.9; BMI 17.9
[2020-12-23] MEDS ORDERED: IBUPROFEN 400 MG TABLET (FP) PO ONE (14:39)
[2020-12-23] MEDS ORDERED: METOCLOPRAMIDE HCL INJECTION 10 MG/2 ML VIAL IVPB ONE (14:45)
[2020-12-23] MEDS ORDERED: METOCLOPRAMIDE HCL INJECTION 10 MG/2 ML VIAL ONE (14:53)
== END 2020-12-23 16:54 | disposition home or self-care (01) ==
LOC: JER 13:41
PROC: 3E033GC Introduction of Other Therapeutic Substance into Peripheral Vein, Percutaneous Approach (ICD-10-PCS; principal; 2020-12-23)
DX: R51.9 Headache, unspecified (principal)
CPT/HCPCS: 99284-25